=== PATIENT | female | born 1960 | race Caucasian/White ===

== ENCOUNTER → 2018-04-19 17:21 | Outpatient (CLI) | payer OTHER, SELFPAY | PROVIDERS: Visit Provider Physician Assistant | DX: N39.0 Urinary tract infection, site not specified (principal) | CPT/HCPCS: 87086 ==

== ENCOUNTER 2018-11-13 17:15 | Emergency (ER) | payer OTHER, SELFPAY ==
[2018-11-13 17:26] VITALS: BP 162/83; PULSE 68; RESP 14; TEMP 36.3; O2SAT 100; BMI 20.5
--- NOTE | 2018-11-13 17:32 | ED_ITS ---
HPI - Wound/Laceration <RONY Carney - Last Filed: 11/13/18 18:05> General Chief Complaint: Wound/Laceration Stated Complaint: CUT FINGER Time Seen by Provider: 11/13/18 17:16 Source: patient and family Mode of arrival: ambulatory Limitations: no limitations History of Present Illness HPI narrative: The patient is a 58-year-old female who presents for chief complaint a laceration to her left 5th digit. She states she was cutting a spaghetti squash and accidentally cut her finger. She states she has full range of motion of her left 5th digit. Her tetanus is within the past 5 years. She denies any numbness or tingling. She has applied pressure. She is not cleansed the wound. Related Data Allergies Allergy/AdvReac Type Severity Reaction Status Date / Time No Known Allergies Allergy Uncoded 11/13/18 17:30 Review of Systems <RONY Carney - Last Filed: 11/13/18 18:05> Review of Systems GENERAL: Denies chills, fatigue, malaise, fever, sweats. HEENT: Denies sinus pain, ear pain, sore throat, difficulty swallowing, dizziness. RESPIRATORY: Denies dyspnea, cough, wheezing, hemoptysis, sputum. CARDIOVASCULAR: Denies chest pain, palpitations, orthopnea, edema, GASTROINTESTINAL: Denies nausea, vomiting, abdominal pain, diarrhea, constipation, melena. : Denies dysuria, frequency, incontinence, hematuria, urinary retention. MUSCULOSKELETAL: See HPI SKIN: See HPI NEUROLOGIC: Denies weakness, headache, numbness, change in speech, confusion, seizures, incoordination. PSYCHIATRIC: No concerning psychosocial issues. 12 point review of systems is negative except for those stated above PFS <ORNY Carney - Last Filed: 11/13/18 18:05> Medical History (Updated 11/13/18 @ 17:57 by RONY Carney) Hypothyroid (Acute) Social History Smoking Status: Never smoker Social History Smoking Status: Never smoker Exam <RONY Carney - Last Filed: 11/13/18 18:05> Narrative Exam Narrative: GENERAL: This is a well-nourished, well-developed patient, holding finger in towel HEAD: Atraumatic. Normocephalic. No temporal or scalp tenderness. EYES: Pupils equal round and reactive. Extraocular motions intact. No scleral icterus. No injection or drainage. ENT: Nose without bleeding, purulent drainage or septal hematoma. Throat without erythema, tonsillar hypertrophy or exudate. Uvula midline. Airway patent. NECK: Trachea midline. No JVD or lymphadenopathy. Supple, nontender, no meningeal signs. CARDIOVASCULAR: Regular rate and rhythm RESPIRATORY: No cough. No increased respiratory effort. No accessory muscle use. EXTREMITIES: Full range of motion noted right 5th digit. Capillary refill less than 2 seconds. Positive radial pulse right hand. BACK: Nontender without deformity or crepitance. No flank tenderness. NEURO: AOx3. SKIN: 0.5 avulsion laceration noted medial aspect of right 5th digit. No active bleeding on initial exam. Initial Vital Signs Initial Vital Signs: Vital Signs Temperature 97.3 F L 11/13/18 17:26 Pulse Rate 68 11/13/18 17:26 Respiratory Rate 14 11/13/18 17:26 Blood Pressure 162/83 H 11/13/18 17:26 Pulse Oximetry 100 11/13/18 17:26 <Jazmin Galdamez DO - Last Filed: 11/14/18 07:25> Initial Vital Signs Initial Vital Signs: Vital Signs Temperature 97.3 F L 11/13/18 17:26 Pulse Rate 68 11/13/18 17:26 Respiratory Rate 14 11/13/18 17:26 Blood Pressure 162/83 H 11/13/18 17:26 Pulse Oximetry 100 11/13/18 17:26 Procedures <RONY Carney - Last Filed: 11/13/18 18:05> Laceration Repair Laceration 1: Site: face Side (If applicable): right Size (cm): 0.5 Description: flap Depth: simple, single layer Pre-repair: wound explored, irrigated extensively (soaked with chlorhexidine and water. Flushed with sterile saline.) and deep structures intact Skin layer closed with: steri-strips Course <RONY Carney - Last Filed: 11/13/18 18:05> Vital Signs - 8 hr 11/13/18 17:26 Temperature 97.3 F L Pulse Rate 68 Respiratory Rate 14 Blood Pressure 162/83 H Pulse Oximetry 100 <Jazmin Galdamez DO - Last Filed: 11/14/18 07:25> Vital Signs - 8 hr 11/13/18 17:26 Temperature 97.3 F L Pulse Rate 68 Respiratory Rate 14 Blood Pressure 162/83 H Pulse Oximetry 100 MDM - Wound/Laceration <MARY CarneyP-BC - Last Filed: 11/13/18 18:05> [facility] Narrative Medical decision making narrative: The patient is a 58-year-old female who presents with a chief complaint of laceration to her right 5th digit. Her tetanus is up-to-date. The wound was cleansed with water, chlorhexidine. I flushed with sterile saline. The patient declines an x-ray. She does have full range of motion. Her wound was closed as documented by Steri-Strips. Discussed at length monitoring for signs and symptoms of infection. Discussed not submerging her finger or hand to dirty water as this increases the chance of infection. Patient has no questions or concerns upon discharge. Discussed what length follow-up with PCP. Discussed come back to ER for any acute concerns. Patient and have no questions or concerns upon discharge. Discharge Plan Departure Patient Disposition: Home Clinical Impression: Laceration Discharge Date/Time: 11/13/18 18:12 Interventions: ED Discharge Assessment Last Done: 11/13/18 18:09 Instructions: DI for Laceration Repair Steri-Strips, DI for Minor Laceration Activity Restrictions/Additional Instructions: Please monitor your laceration for signs and symptoms of infection such as redness pus and swelling. Please follow up with primary care provider. Please do not submerge her hand and dirty water until it is healed as this will increase her chance of infection. Please come back to the emergency department for any acute concerns such as decreased circulation her finger tip, inability keep down fluids chest pain or shortness of breath. <Jazmin Galdamez DO - Last Filed: 11/14/18 07:25> Cosign ED Attending Cosmacielature Attestation: I was immediately available in the department for consultation. Documentation has been reviewed. I agree with assessment and plan.
== END 2018-11-13 18:12 | disposition home or self-care (01) ==
PROVIDERS: Emergency Provider Nurse Practitioner Family
DX: S61.217A Laceration without foreign body of left little finger without damage to nail, initial encounter (principal); W26.0XXA Contact with knife, initial encounter
CPT/HCPCS: 99282; 99283

== ENCOUNTER → 2020-07-14 07:20 | Outpatient (CLI) | payer OTHER, SELFPAY ==
[2020-07-14 07:58] LABS: Hematocrit 38.2 % (36-46); Mean Corpuscular Hemoglobin 30.2 PG (26-34); Mean Corpuscular Volume 88.9 fL (80-100); Platelet Count 301 X10^3/uL (150-400); Red Cell Distribution Width 13.7 % (11.6-14.8); White Blood Cell Count 4.7 X10^3/uL (4.5-11.0)
[2020-07-14 08:25] LABS: Alanine Aminotransferase 12 IU/L (<35); Albumin 4.5 g/dL (3.5-5.0); Albumin Globulin Ratio 1.7 (1.0-2.8); Alkaline Phosphatase 58 U/L (38-126); Aspartate Aminotransferase 25 IU/L (14-36); BUN Creatinine Ratio 20.7 (6-22); Bilirubin Total 0.3 mg/dL (0.2-1.3); Blood Urea Nitrogen 17 mg/dL (7-17); Calcium 9.5 mg/dL (8.4-10.2); Carbon Dioxide 32 mmol/L (22-32); Chloride 101 mmol/L (98-107); Cholesterol 250 mg/dL (140-199); Estimated Glomerular Filt Rate > 60.0 mL/min (>60); Globulin 2.7 g/dL (1.7-4.1); Glucose 105 mg/dL (80-110); HDL Cholesterol 72 mg/dL (40-60); HEMOLYSIS < 15 (0-50); LDL Cholesterol Calculated 152 mg/dL (<100); Potassium 4.1 mmol/L (3.4-5.1); Sodium 139 mmol/L (137-145); Total Protein 7.2 g/dL (6.3-8.2); Triglycerides 129 mg/dL (35-150)
== END ==
PROVIDERS: PCP Nurse Practitioner Family; Referring Provider Nurse Practitioner Family; Visit Provider Nurse Practitioner Family
DX: Z00.00 Encounter for general adult medical examination without abnormal findings (principal); Z13.6 Encounter for screening for cardiovascular disorders
CPT/HCPCS: 36415; 80053; 80061; 85027

== ENCOUNTER 2020-11-10 16:04 | Emergency (ER) | payer OTHER, SELFPAY ==
[2020-11-10 16:12] VITALS: BP 140/80; PULSE 63; RESP 16; TEMP 36.6; O2SAT 99; BMI 21.1
--- NOTE | 2020-11-10 16:17 | DI.RAD.S_ITS ---
PROCEDURE: XR CHEST 2V INDICATIONS: Fell TECHNIQUE: 2 views of the chest were acquired. COMPARISON: [facility], , XR CHEST 2 VIEWS, 03/01/2020, 16:31. FINDINGS: Surgical changes and devices: None. Lungs and pleura: Lungs are clear. No pleural effusions or pneumothorax. Mediastinum: Mediastinal contours are normal. Heart size is normal. Bones and chest wall: No suspicious bony abnormalities. Soft tissues appear unremarkable. IMPRESSION: No acute cardiopulmonary disease process. Dictated by: Sharon Murillo MD, PhD on 11/10/2020 at 16:28 Approved by: Sharon Murillo MD, PhD on 11/10/2020 at 16:29
== END 2020-11-10 19:45 | disposition left against medical advice (07) ==
PROVIDERS: Emergency Provider Emergency Medicine; PCP Nurse Practitioner Family
DX: S29.9XXA Unspecified injury of thorax, initial encounter (principal); W19.XXXA Unspecified fall, initial encounter
CPT/HCPCS: 71046; 99281

== ENCOUNTER → 2020-11-16 14:32 | Outpatient (CLI) | payer OTHER, SELFPAY ==
--- NOTE | 2020-11-16 | DI.MG.S_ITS ---
BILATERAL DIGITAL SCREENING MAMMOGRAM 3D/2D WITH CAD WITH AUGMENTATION: 11/16/2020 CLINICAL: Routine screening. Comparison is made to exams dated: 11/16/2019 mammogram, 05/15/2018 mammogram, 11/05/2017 mammogram, 10/30/2017 mammogram, and 05/23/2016 mammogram - [facility]. There are scattered fibroglandular elements in both breasts. Current study was also evaluated with a Computer Aided Detection (CAD) system. Bilateral breast implants are stable. No significant masses, calcifications, or other findings are seen in either breast. There has been no significant interval change. IMPRESSION: NEGATIVE There is no mammographic evidence of malignancy. A 1 year screening mammogram is recommended. This exam was interpreted at Station ID: [id number]. NOTE: For mammograms, a report in lay terms will be sent to the patient. Approximately 15% of breast malignancies will not be visualized mammographically. In the management of a palpable breast mass, a negative mammogram must not discourage biopsy of a clinically suspicious lesion. Electronically Signed By: Keith kiran/alva:11/16/2020 15:06:27 letter sent: Normal Exam ACR BI-RADS Category 1: Negative 3341F
== END ==
PROVIDERS: PCP Nurse Practitioner Family; Referring Provider Nurse Practitioner Family; Visit Provider Nurse Practitioner Family
DX: Z12.31 Encounter for screening mammogram for malignant neoplasm of breast (principal)
CPT/HCPCS: 77063; 77067

== ENCOUNTER → 2021-08-11 08:02 | Outpatient (CLI) | payer OTHER, SELFPAY ==
[2021-08-11 09:33] LABS: Hematocrit 36.7 % (36-46); Hemoglobin 12.4 g/dL (12.0-16.0); Mean Corpuscular HGB Conc 33.7 % (30-36); Mean Corpuscular Hemoglobin 30.1 PG (26-34); Mean Corpuscular Volume 89.2 fL (80-100); Platelet Count 286 X10^3/uL (150-400); Red Blood Cell Count 4.11 X10^6/uL (4.0-5.2); Red Cell Distribution Width 13.5 % (11.6-14.8); White Blood Cell Count 5.4 X10^3/uL (4.5-11.0)
[2021-08-11 09:52] LABS: Alanine Aminotransferase 11 IU/L (<35); Albumin 4.4 g/dL (3.5-5.0); Albumin Globulin Ratio 1.6 (1.0-2.8); Alkaline Phosphatase 43 U/L (38-126); Aspartate Aminotransferase 25 IU/L (14-36); Bilirubin Total 0.4 mg/dL (0.2-1.3); Blood Urea Nitrogen 19 mg/dL (7-17); Calcium 9.3 mg/dL (8.4-10.2); Carbon Dioxide 26 mmol/L (22-32); Chloride 105 mmol/L (98-107); Cholesterol 229 mg/dL (140-199); Estimated Glomerular Filt Rate > 60 mL/min (>60); Globulin 2.7 g/dL (1.7-4.1); Glucose 101 mg/dL (80-110); HDL Cholesterol 73 mg/dL (40-60); HEMOLYSIS 21 (0-50); LDL Cholesterol Calculated 139 mg/dL (<100); Potassium 4.8 mmol/L (3.4-5.1); Sodium 141 mmol/L (137-145); Total Protein 7.1 g/dL (6.3-8.2); Triglycerides 85 mg/dL (35-150)
== END ==
PROVIDERS: PCP Nurse Practitioner Family; Referring Provider Nurse Practitioner Family; Visit Provider Nurse Practitioner Family
DX: Z00.00 Encounter for general adult medical examination without abnormal findings (principal); Z13.6 Encounter for screening for cardiovascular disorders
CPT/HCPCS: 36415; 80053; 80061; 85027

== ENCOUNTER → 2021-10-30 11:06 | Outpatient (CLI) | payer OTHER, SELFPAY ==
[2021-10-30 12:13] LABS: COVID19 -Nasal RAPID Negative (Negative)
== END ==
PROVIDERS: PCP Nurse Practitioner; Visit Provider Surgery
DX: Z20.822 Contact with and (suspected) exposure to COVID-19 (principal); Z01.812 Encounter for preprocedural laboratory examination
CPT/HCPCS: 87635; C9803

== ENCOUNTER 2021-10-31 06:42 | Day surgery (SDC) | payer OTHER, SELFPAY ==
[2021-10-31 06:59] VITALS: BP 124/73; PULSE 56; RESP 20; TEMP 36.3; O2SAT 100
[2021-10-31] MEDS: LACTATED RINGERS 1,000 ML 150 ML IV (07:11)
--- NOTE | 2021-10-31 07:44 | PM.HP.1 ---
History of Present Illness History of Present Illness Date Patient Seen: 10/31/21 Time Patient Seen: 07:[address] [facility] Narrative: Last colonoscopy 5 years ago. This is her 3rd, polyps found on first scope, not on 2nd. No symptoms or family history Patient History Medical History Chicken pox (~1969) Chronic cough (~2019) Dyspareunia Encounter for routine gynecological examination Encounter to establish care Insomnia Measles (~1965) Mixed hyperlipidemia (06/2020) Mumps (~1965) Prinzmetal angina (2014) Rosacea (~1996) Seasonal allergies Tinnitus Surgical History Anesthesia History of cosmetic surgery (~06/2019) Family & Social History Family History Mother Accident Social History: household members spouse Tobacco & Substance use: Smoking Status Never smoker alcohol intake current alcohol intake frequency 0-2 drinks per day Substance Use Type does not use Meds Home Medications and Allergies Home Medications Medication Instructions Recorded Confirmed Type progesterone micronized 100 mg 100 mg PO QPM 90 days #90 caps 08/08/21 10/31/21 Rx capsule eszopiclone 3 mg tablet 3 mg PO BEDTIME #90 tabs 10/26/21 10/31/21 Rx Allergies Allergy/AdvReac Type Severity Reaction Status Date / Time No Known Drug Allergies Allergy Verified 10/31/21 07:06 Review of Systems Review of Systems ROS: Yes All systems reviewed with the patient and are negative except as otherwise documented Exam Vital Signs (past 8 hours): - 10/31/21 06:59 Temperature 97.3 F L Pulse Rate 56 L Respiratory Rate 20 Blood Pressure 124/73 Pulse Oximetry 100 Oxygen Delivery Method Room Air Oxygen Delivery Method Room Air Const General: cooperative, healthy appearing and comfortable [facility] Head: normal to inspection, normocephalic and atraumatic Eyes General: appearance normal, both eyes and all related structures Neck Neck: trachea midline Chest Chest: normal inspection of the chest Resp Effort & Inspection: normal respiratory effort and able to speak in complete sentences Auscultation: clear to auscultation bilaterally Cardio Rate: regular rate Rhythm: regular rhythm GI Inspection: normal to inspection Skin General: no rashes or lesions noted Hair: normal Neuro General: patient alert and patient oriented x3 Cognition: normal cognition Psych Appearance: grossly normal Judgment: judgment good Assessment & Plan Assessment & Plan narrative: Screening colonoscopy colonoscopy with moderate sedation. COVID-19 COVID-19 status: Negative Time Spent With Patient Time with patient: less than 30 minutes Critical Care time: I spent a total of [] minutes of critical care time on this patient's care today; this time is exclusive of procedural time.
[2021-10-31] MEDS: MIDAZOLAM 5 MG/5 ML VIAL IV (08:05)
[2021-10-31] MEDS: fentaNYL 250 MCG/5 ML INJ 150 MCG IV (08:05)
--- NOTE | 2021-10-31 08:15 | PM.OP.COLON ---
Operative Date/Time/Diagnoses Date of procedure: 10/31/21 Time of procedure: 08:15 Pre-op diagnosis: screening colonoscopy history of colon polyps Post-op diagnosis: same Procedure & Clinicians Study performed: Colonoscopy Same procedure as scheduled: Yes Indications: History of colon polyps Surgeon: Norma Polanco Procedure Notes SCOAP/Timeout: Done Procedure in detail: Preop diagnosis: History of colon polyps Postop diagnosis: Same Operative procedure: Colonoscopy with moderate sedation Anesthetic: Versed 5 mg, fentanyl 50 mcg Surgeon: Elizabeth Polanco MD Findings: Normal colon. No polyps, no diverticuli, melanosis coli noted. Procedure: Patient placed in a lateral position. Rectal exam performed showing normal tone no masses. Colonoscope inserted into the rectum and advanced to ileocecal valve with some difficulty and pressure out externally on the abdomen. Insufflation extraction of the scope including a retroflex in the rectum, had the above findings. Impression: Normal colonoscopy. Plan: Repeat colonoscopy 5 years due to self history of colon polyps Sedation minutes: 5 Specimen(s): none sent Complications: none Impression: No polyps, no diverticuli. Normal colon Post-procedure Recommendations: Colonoscopy in 5 years Follow up: as needed Disposition: PACU
[2021-10-31 08:18] VITALS: BP 96/75; PULSE 67; RESP 16; TEMP 36.3; O2SAT 97
[2021-10-31 08:30] VITALS: BP 108/69; PULSE 73; RESP 12; TEMP 36.8; O2SAT 98
[2021-10-31 08:37] VITALS: BP 118/72; PULSE 72; RESP 16; TEMP 36.9; O2SAT 98
== END 2021-10-31 08:53 | disposition home or self-care (01) ==
PROVIDERS: PCP Nurse Practitioner; Referring Provider Surgery; Visit Provider Surgery
PROC: 0DJD8ZZ Inspection of Lower Intestinal Tract, Via Natural or Artificial Opening Endoscopic (ICD-10-PCS; CPT 45378; principal; 2021-10-31 07:45)
DX: Z12.11 Encounter for screening for malignant neoplasm of colon (principal); Z86.010 Personal history of colon polyps
CPT/HCPCS: 45378; J2250; J3010

== ENCOUNTER → 2021-11-28 10:37 | Outpatient (CLI) | payer OTHER, SELFPAY ==
--- NOTE | 2021-11-28 | DI.MG.S_ITS ---
BILATERAL DIGITAL SCREENING MAMMOGRAM 3D/2D WITH CAD WITH AUGMENTATION: 11/28/2021 CLINICAL: Routine screening. Comparison is made to exams dated: 11/16/2020 mammogram - [facility], 11/16/2019 mammogram, and 10/30/2017 mammogram - [facility]. There are scattered fibroglandular elements in both breasts. Current study was also evaluated with a Computer Aided Detection (CAD) system. Bilateral breast implants are stable. No significant masses, calcifications, or other findings are seen in either breast. There has been no significant interval change. IMPRESSION: NEGATIVE There is no mammographic evidence of malignancy. A 1 year screening mammogram is recommended. Based on the Tyrer Cuzick model (a risk assessment model) the patient's lifetime risk is 7.5% and her 10 year risk is 3.2%. According to the ACR, ACS, and NCCN guidelines, an annual breast MRI exam along with mammogram is recommended if the patient's lifetime risk is 20% or greater. This exam was interpreted at Station ID: [id number]. NOTE: For mammograms, a report in lay terms will be sent to the patient. Approximately 15% of breast malignancies will not be visualized mammographically. In the management of a palpable breast mass, a negative mammogram must not discourage biopsy of a clinically suspicious lesion. Electronically Signed By: Sebas Soares M.D., jr/alva:11/29/2021 14:29:13 letter sent: Normal Exam ACR BI-RADS Category 1: Negative 3341F
== END ==
PROVIDERS: PCP Nurse Practitioner; Referring Provider Nurse Practitioner; Visit Provider Nurse Practitioner
DX: Z12.31 Encounter for screening mammogram for malignant neoplasm of breast (principal)
CPT/HCPCS: 77063; 77067

== ENCOUNTER → 2021-12-18 07:24 | Outpatient (CLI) | payer OTHER, SELFPAY ==
[2021-12-18 08:17] LABS: Add Manual Diff / Slide Review NO; Basophils Absolute Auto 100 /uL (0-100); Basophils Percent Auto 1.4 % (0-2); Eosinophils Absolute Auto 100 /uL (0-450); Eosinophils Percent Auto 3.3 % (2-4); Hemoglobin 11.7 g/dL (12.0-16.0); Lymphocytes Absolute Auto 1900 /uL (1100-4500); Lymphocytes Percent Auto 48.6 % (25-40); Mean Corpuscular HGB Conc 34.3 % (30-36); Mean Corpuscular Hemoglobin 30.1 PG (26-34); Mean Corpuscular Volume 87.6 fL (80-100); Monocytes Absolute Auto 300 /uL (0-900); Monocytes Percent Auto 8.3 % (3-14); Neutrophils Absolute Auto 1500 /uL (1500-7000); Neutrophils Percent Auto 38.4 % (50-75); Platelet Count 302 X10^3/uL (150-400); Red Blood Cell Count 3.88 X10^6/uL (4.0-5.2); Red Cell Distribution Width 13.6 % (11.6-14.8); White Blood Cell Count 3.9 X10^3/uL (4.5-11.0)
[2021-12-18 08:28] LABS: Alanine Aminotransferase 12 IU/L (<35); Albumin Globulin Ratio 1.4 (1.0-2.8); Alkaline Phosphatase 47 U/L (38-126); Aspartate Aminotransferase 22 IU/L (14-36); BUN Creatinine Ratio 22.7 (6-22); Bilirubin Total 0.5 mg/dL (0.2-1.3); Blood Urea Nitrogen 17 mg/dL (7-17); Calcium 8.8 mg/dL (8.4-10.2); Carbon Dioxide 30 mmol/L (22-32); Chloride 106 mmol/L (98-107); Estimated Glomerular Filt Rate > 60 mL/min (>60); Globulin 2.8 g/dL (1.7-4.1); Glucose 108 mg/dL (80-110); HEMOLYSIS < 15 (0-50); Sodium 138 mmol/L (137-145); Total Protein 6.8 g/dL (6.3-8.2)
[2021-12-18 11:10] LABS: HEMOLYSIS < 15 (0-50); Iron 111 ug/dL (37-170)
[2021-12-18 11:21] LABS: Percent Iron Saturation 39 % (15-50); Total Iron Binding Capacity 286 ug/dL (265-497); Transferrin 229 mg/dL (206-381)
[2021-12-18 11:27] LABS: Free T3, Triiodothyronine Free 2.94 pg/mL (2.77-5.27); Free T4, Direct Thyroxine 0.83 ng/dL (0.78-2.19)
[2021-12-18 11:41] LABS: Thyroid Stimulating Hormone 2.23 uIU/mL (0.47-4.68)
== END ==
PROVIDERS: PCP Nurse Practitioner; Referring Provider Nurse Practitioner; Visit Provider Nurse Practitioner
DX: Z01.812 Encounter for preprocedural laboratory examination (principal); L65.9 Nonscarring hair loss, unspecified
CPT/HCPCS: 36415; 80053; 83540; 83550; 84439; 84443; 84481; 85025

== ENCOUNTER → 2021-12-22 07:05 | Outpatient (CLI) | payer OTHER, SELFPAY ==
[2021-12-22 09:17] LABS: Add Manual Diff / Slide Review NO; Basophils Absolute Auto 100 /uL (0-100); Basophils Percent Auto 1.3 % (0-2); Eosinophils Absolute Auto 100 /uL (0-450); Eosinophils Percent Auto 3.6 % (2-4); Hematocrit 35.9 % (36-46); Lymphocytes Absolute Auto 1800 /uL (1100-4500); Mean Corpuscular HGB Conc 33.4 % (30-36); Mean Corpuscular Hemoglobin 29.6 PG (26-34); Mean Corpuscular Volume 88.5 fL (80-100); Monocytes Absolute Auto 400 /uL (0-900); Monocytes Percent Auto 9.3 % (3-14); Neutrophils Absolute Auto 1600 /uL (1500-7000); Neutrophils Percent Auto 40.8 % (50-75); Platelet Count 316 X10^3/uL (150-400); Red Blood Cell Count 4.06 X10^6/uL (4.0-5.2); Red Cell Distribution Width 13.9 % (11.6-14.8)
[2021-12-22 09:19] LABS: Hemoglobin A1C% w Est Avg Glu 5.7 % (4.0-6.0)
[2021-12-22 09:48] LABS: Alanine Aminotransferase 11 IU/L (<35); Albumin 4.3 g/dL (3.5-5.0); Albumin Globulin Ratio 1.7 (1.0-2.8); Alkaline Phosphatase 48 U/L (38-126); Aspartate Aminotransferase 21 IU/L (14-36); BUN Creatinine Ratio 21.3 (6-22); Bilirubin Total 0.3 mg/dL (0.2-1.3); Blood Urea Nitrogen 17 mg/dL (7-17); Calcium 9.3 mg/dL (8.4-10.2); Carbon Dioxide 29 mmol/L (22-32); Chloride 105 mmol/L (98-107); Estimated Glomerular Filt Rate > 60 mL/min (>60); Globulin 2.6 g/dL (1.7-4.1); Glucose 87 mg/dL (80-110); HEMOLYSIS < 15 (0-50); Potassium 4.5 mmol/L (3.4-5.1); Sodium 140 mmol/L (137-145); Total Protein 6.9 g/dL (6.3-8.2)
[2021-12-22 10:30] LABS: Vitamin B12 312 pg/mL (239-931)
== END ==
PROVIDERS: PCP Nurse Practitioner; Referring Provider Nurse Practitioner; Visit Provider Nurse Practitioner
DX: D64.9 Anemia, unspecified (principal); D72.819 Decreased white blood cell count, unspecified; R73.9 Hyperglycemia, unspecified
CPT/HCPCS: 36415; 80053; 82607; 83036; 85025

== ENCOUNTER → 2021-12-26 14:23 | Outpatient (CLI) | payer OTHER, SELFPAY ==
--- NOTE | 2021-12-26 14:25 | DI.MRI.S_ITS ---
PROCEDURE: MR BRAIN (IAC) WWO CON INDICATIONS: pain in head, loud tinnitus TECHNIQUE: Noncontrast sagittal T1 spin echo, axial FLAIR, axial gradient echo, axial diffusion and ADC through the brain. Axial thin-slice 3D CISS, coronal TruFISP, axial T1 spin echo with fat saturation through the internal auditory canals. After the administration of contrast, thin slice axial and coronal T1 spin echo with fat saturation through the internal auditory canals, and axial and coronal and sagittal T1 spin echo with fat saturation through the brain. COMPARISON: None. FINDINGS: Image quality: Excellent. The ventricular system and cortical sulci demonstrate atrophy, consistent for the patient's stated age. There are areas of increased T2/FLAIR signal intensity within the periventricular and subcortical white matter. There is no acute intra-or extra axial fluid collection. No acute hemorrhage, mass lesion or midline shift. Brainstem is unremarkable. There are no areas of restricted diffusion. Globes are symmetrical. Sinuses are aerated. Osseous structures are intact. There are no areas of mass lesion, abnormal signal or enhancement within the cerebellopontine angles or visualized cranial nerves. IMPRESSION: 1. No acute intracranial process. 2. Mild atrophy and chronic microvascular ischemic changes. 3. No abnormal signal, mass lesion or enhancement within the cerebellopontine angles or visualized cranial nerves. Dictated by: Sarah Alfaro M.D. on 12/26/2021 at 21:28 Approved by: Sarah Alfaro M.D. on 12/26/2021 at 21:29
[2021-12-26 15:04] LABS: Occult Blood 1 Negative (Negative); Occult Blood 2 Negative (Negative)
[2021-12-26 15:05] LABS: Occult Blood 3 Negative (Negative)
== END ==
PROVIDERS: PCP Nurse Practitioner; Referring Provider Nurse Practitioner; Visit Provider Nurse Practitioner
DX: H93.13 Tinnitus, bilateral (principal); R51.9 Headache, unspecified; Z80.8 Family history of malignant neoplasm of other organs or systems; D51.9 Vitamin B12 deficiency anemia, unspecified
CPT/HCPCS: 70553; 82270; A9579

== ENCOUNTER 2022-04-14 20:09 | Emergency (ER) | payer OTHER, SELFPAY ==
[2022-04-14 20:15] VITALS: BP 144/83; PULSE 86; RESP 16; TEMP 37.1; O2SAT 98; BMI 19.5
--- NOTE | 2022-04-14 21:22 | ED.WOUNDLAC ---
HPI - Wound/Laceration General Chief Complaint: Wound/Laceration Stated Complaint: cut/left hand injury Time Seen by Provider: 04/14/22 21:21 Source: patient Mode of arrival: Ambulatory History of Present Illness HPI narrative: Otherwise healthy 61-year-old right-handed woman presents with a cut to the dorsum of her left hand. She was opening a can of pineapple and the lid slipped cause laceration. The thumb extensor tendon can be visualized but is not damaged and there is complete sensation to the remainder of the thumb. Last tetanus shot was 5 years ago. The wound is otherwise quickly. Related Data Home Medications Medication Instructions Recorded Confirmed Pure Hair Nail and Skin See Rx Instructions .Route .COMPLEX 12/14/21 12/14/21 Previous Rx's Medication Instructions Recorded progesterone micronized 100 mg 100 mg PO QPM 90 days #90 caps 12/14/21 capsule eszopiclone 3 mg tablet 3 mg PO BEDTIME #90 tabs 03/27/22 cephalexin 500 mg capsule 500 mg PO TID #15 caps 04/14/22 Allergies Allergy/AdvReac Type Severity Reaction Status Date / Time No Known Drug Allergies Allergy Verified 10/31/21 08:22 Review of Systems Review of Systems Narrative: Pertinent positive and negative findings as per HPI Remainder of review of systems is otherwise unremarkable for Constitutional: Fevers, chills, weakness ENT: No sore throat, neck pain, ear pain CV: Chest pain, palpitations, Respiratory: Cough, wheeze, dyspnea GI: Nausea, vomiting, diarrhea, Patient History Medical History Chicken pox (~1969) Chronic cough (~2019) Dyspareunia Encounter for routine gynecological examination Encounter to establish care Insomnia Measles (~1965) Mixed hyperlipidemia (06/2020) Mumps (~1965) Prinzmetal angina (2014) Rosacea (~1996) Seasonal allergies Tinnitus Surgical History Anesthesia History of cosmetic surgery (~06/2019) Family History Mother Accident Social History household members: spouse Smoking Status: Never smoker second hand exposure: No alcohol intake: current substance use type: does not use Smoking Status: Never smoker alcohol intake frequency: 0-2 drinks per day Alcohol type: wine Substance Use Type: does not use Exam Initial Vital Signs Initial Vital Signs: Vital Signs Temperature 98.8 F 04/14/22 20:15 Pulse Rate 86 04/14/22 20:15 Respiratory Rate 16 04/14/22 20:15 Blood Pressure 144/83 H 04/14/22 20:15 Pulse Oximetry 98 04/14/22 20:15 Oxygen Delivery Method 04/14/22 20:15 General: Alert appropriate in no acute distress Respiratory: Able to speak in full sentences, no obvious respiratory distress Skin: No obvious rashes, warm and dry Neurologic: Grossly intact no obvious asymmetries or abnormalities Psych: appropriate insight and affect, cooperative Extremity: Left hand has a 2 cm laceration at the base of the thumb, dorsal side. Laceration extends slightly into the tendon sheath but does not involve the tendon itself. She is otherwise neurovascularly intact. Procedures Laceration Repair left thumb: Time of procedure: 21:42 Site: hand Side (If applicable): left Size (cm): 2 Description: linear Depth: simple, single layer Local Anesthetic: lidocaine 1% Amount of anesthesia used (mL): 2 Pre-repair: wound explored, irrigated extensively and deep structures intact Skin layer closed with: nylon Skin layer suture size: 4-0 Number of sutures: 2 Technique: horizontal mattress Course Vital Signs Vital signs: Vital Signs - 8 hr 04/14/22 20:15 Temperature 98.8 F Pulse Rate 86 Respiratory Rate 16 Blood Pressure 144/83 H Pulse Oximetry 98 Oxygen Delivery Method Room Air MDM - Wound/Laceration MDM Narrative Medical decision making narrative: Minor laceration dorsal surfaced base of the left thumb, sutures placed. Dressing placed, antibiotics initiated, questions answered patient is safe for home discharge Discharge Plan Departure Patient Disposition: Home Clinical Impression: Laceration Instructions: DI for Minor Laceration Activity Restrictions/Additional Instructions: Thank you for coming in today Unfortunately, the cut is deep enough that you do need a couple of stitches. These will need to come out on or about April 21. Because the cut went very close to the tendon, I am going to set just 5 days of Keflex to prevent any type of hand infection. Please keep the wound covered with a Band-Aid and some antibiotic ointment. If you notice increasing redness, pain with moving your thumb or new symptoms you do need to come back for further evaluation Prescription was electronically transmitted to [facility] and I have given you enough to last through [place] as pharmacies will not be open. I wish you the best Prescriptions: New cephalexin 500 mg capsule 500 mg PO TID Qty: 15 0RF No Action progesterone micronized 100 mg capsule 100 mg PO QPM 90 Days Qty: 90 3RF Rx Instructions: Take 1 capsule at bedtime daily, ok to increase to 200mg if 100mg ineffective eszopiclone 3 mg tablet 3 mg PO BEDTIME Qty: 90 3RF Pure Hair Nail and Skin See Rx Instructions .ROUTE .COMPLEX Rx Instructions: Take 1 daily per Derm.; Referrals: Jenelle Washington ARNP [Primary Care Provider] -
[2022-04-14] MEDS: cephALEXin 250 MG CAPSULE 500 MG PO (21:44)
[2022-04-14] MEDS: cephALEXin 250 MG PREPACK 1 BOTTLE MISC (21:44)
== END 2022-04-14 21:53 | disposition home or self-care (01) ==
PROVIDERS: Emergency Provider Emergency Medicine; PCP Nurse Practitioner
DX: S61.412A Laceration without foreign body of left hand, initial encounter (principal); W26.8XXA Contact with other sharp object(s), not elsewhere classified, initial encounter
CPT/HCPCS: 12001; 99283

== ENCOUNTER → 2022-09-03 10:45 | Outpatient (CLI) | payer OTHER, SELFPAY ==
--- NOTE | 2022-09-03 10:46 | DI.RAD.S_ITS ---
PROCEDURE: XR KUB INDICATIONS: Nephrolithiasis TECHNIQUE: One view of the abdomen acquired. COMPARISON: Outside Facility, RG, CT ABDOMEN/PELVIS WITH CONTRAST, 07/14/2022, 18:55. FINDINGS: Surgical changes and devices: None. Bowel: Bowel gas pattern is normal. Soft tissues: No suspicious abdominal calcifications. Visualized solid organ contours appear normal in size. Bones: No suspicious bony lesions. IMPRESSION: Negative examination. Nonvisualization of the previously seen distal left ureteral calculus. Dictated by: Ryan Lim M.D. on 09/03/2022 at 13:31 Transcribed by: DARY on 09/03/2022 at 14:02 Approved by: Ryan Lim M.D. on 09/03/2022 at 16:21
== END ==
PROVIDERS: PCP Nurse Practitioner; Referring Provider Urology; Visit Provider Urology
DX: N20.0 Calculus of kidney (principal)
CPT/HCPCS: 74018

== ENCOUNTER → 2022-09-20 12:49 | Outpatient (CLI) | payer OTHER, SELFPAY ==
[2022-09-20 15:22] LABS: Calcium 9.8 mg/dL (8.4-10.2); Phosphorous 3.7 mg/dL (2.8-4.1); Uric Acid 5.5 mg/dL (2.5-6.2)
[2022-09-22 07:03] LABS: Parathyroid Hormone Int 44 pg/mL (15-65)
[2022-09-25 14:22] LABS: Ca oxalate dihydrate 20 % (.); Ca oxalate monohydr 80 % (.); Size 5x4 mm (.)
== END ==
PROVIDERS: PCP Nurse Practitioner; Referring Provider Urology; Visit Provider Urology
DX: N20.0 Calculus of kidney (principal)
CPT/HCPCS: 36415; 81002; 82310; 82365; 83970; 84100; 84550

== ENCOUNTER → 2022-10-05 07:36 | Outpatient (CLI) | payer OTHER, SELFPAY ==
[2022-10-05 08:54] LABS: Hematocrit 35.5 % (36-46); Hemoglobin 12.2 g/dL (12.0-16.0); Mean Corpuscular HGB Conc 34.4 % (30-36); Mean Corpuscular Hemoglobin 30.4 PG (26-34); Mean Corpuscular Volume 88.1 fL (80-100); Platelet Count 337 X10^3/uL (150-400); Red Blood Cell Count 4.03 X10^6/uL (4.0-5.2); White Blood Cell Count 4.5 X10^3/uL (4.5-11.0)
[2022-10-05 09:36] LABS: Alanine Aminotransferase 14 IU/L (<35); Albumin 4.2 g/dL (3.5-5.0); Albumin Globulin Ratio 1.6 (1.0-2.8); Alkaline Phosphatase 46 U/L (38-126); Aspartate Aminotransferase 22 IU/L (14-36); BUN Creatinine Ratio 23.2 (6-22); Bilirubin Total 0.6 mg/dL (0.2-1.3); Blood Urea Nitrogen 19 mg/dL (7-17); Calcium 9.3 mg/dL (8.4-10.2); Carbon Dioxide 30 mmol/L (22-32); Chloride 101 mmol/L (98-107); Cholesterol 234 mg/dL (140-199); Estimated Glomerular Filt Rate > 60 mL/min (>60); Globulin 2.6 g/dL (1.7-4.1); Glucose 91 mg/dL (80-110); HDL Cholesterol 74 mg/dL (40-60); HEMOLYSIS < 15 (0-50); LDL Cholesterol Calculated 139 mg/dL (<100); Potassium 4.7 mmol/L (3.4-5.1); Sodium 136 mmol/L (137-145); Total Protein 6.8 g/dL (6.3-8.2); Triglycerides 105 mg/dL (35-150)
[2022-10-05 09:46] LABS: Microalbumin Urine Random < 0.6 mg/dL (0-1.6)
[2022-10-05 09:52] LABS: Free T3, Triiodothyronine Free 3.58 pg/mL (2.77-5.27); Free T4, Direct Thyroxine 0.86 ng/dL (0.78-2.19)
[2022-10-05 10:06] LABS: Thyroid Stimulating Hormone 2.41 uIU/mL (0.47-4.68)
[2022-10-05 10:10] LABS: HIV 1 & 2 Ab/Ag 4th Gen Combo NEGATIVE (NEGATIVE)
== END ==
PROVIDERS: PCP Nurse Practitioner; Referring Provider Nurse Practitioner; Visit Provider Nurse Practitioner
DX: Z00.00 Encounter for general adult medical examination without abnormal findings (principal); Z11.4 Encounter for screening for human immunodeficiency virus [HIV]
CPT/HCPCS: 36415; 80053; 80061; 82043; 82570; 84439; 84443; 84481; 85027; 87389

== ENCOUNTER → 2022-12-10 15:01 | Outpatient (CLI) | payer OTHER, SELFPAY ==
[2022-12-10 16:48] LABS: BUN Creatinine Ratio 24.7 (6-22); Blood Urea Nitrogen 19 mg/dL (7-17); Calcium 9.2 mg/dL (8.4-10.2); Carbon Dioxide 27 mmol/L (22-32); Chloride 102 mmol/L (98-107); Estimated Glomerular Filt Rate > 60 mL/min (>60); Glucose 146 mg/dL (80-110); HEMOLYSIS < 15 (0-50); Potassium 3.7 mmol/L (3.4-5.1); Sodium 137 mmol/L (137-145)
== END ==
PROVIDERS: PCP Nurse Practitioner; Referring Provider Internal Medicine Cardiovascular Disease; Visit Provider Internal Medicine Cardiovascular Disease
DX: I20.1 Angina pectoris with documented spasm (principal)
CPT/HCPCS: 36415; 80048

== ENCOUNTER → 2023-01-24 15:14 | Outpatient (CLI) | payer OTHER, SELFPAY ==
--- NOTE | 2023-01-24 | DI.MG.S_ITS ---
BILATERAL DIGITAL SCREENING MAMMOGRAM 3D/2D WITH CAD WITH AUGMENTATION: 01/24/2023 CLINICAL: Routine screening. Comparison is made to exams dated: 11/28/2021 mammogram, 11/16/2020 mammogram - [facility], and 11/16/2019 mammogram - [facility]. There are scattered areas of fibroglandular density in both breasts (category b / 25%-50% glandular tissue). Current study was also evaluated with a Computer Aided Detection (CAD) system. Bilateral breast implants are stable. No significant masses, calcifications, or other findings are seen in either breast. There has been no significant interval change. IMPRESSION: NEGATIVE There is no mammographic evidence of malignancy. A 1 year screening mammogram is recommended. Based on the Tyrer Cuzick model (a risk assessment model) the patient's lifetime risk is 7.4% and her 10 year risk is 3.3%. According to the ACR, ACS, and NCCN guidelines, an annual breast MRI exam along with mammogram is recommended if the patient's lifetime risk is 20% or greater. This exam was interpreted at Station ID: [id number]. NOTE: For mammograms, a report in lay terms will be sent to the patient. Approximately 15% of breast malignancies will not be visualized mammographically. In the management of a palpable breast mass, a negative mammogram must not discourage biopsy of a clinically suspicious lesion. Electronically Signed By: Johnny levine/alva:01/25/2023 18:28:17 letter sent: Normal Exam ACR BI-RADS Category 1: Negative 3341F
== END ==
PROVIDERS: PCP Nurse Practitioner; Referring Provider Nurse Practitioner; Visit Provider Nurse Practitioner
DX: Z12.31 Encounter for screening mammogram for malignant neoplasm of breast (principal)
CPT/HCPCS: 77063; 77067

== ENCOUNTER → 2023-11-04 07:04 | Outpatient (CLI) | payer OTHER, SELFPAY ==
[2023-11-04 08:35] LABS: Add Manual Diff / Slide Review NO; Basophils Absolute Auto 0 /uL (0-100); Basophils Percent Auto 0.9 % (0-2); Eosinophils Absolute Auto 100 /uL (0-450); Eosinophils Percent Auto 3.1 % (2-4); Hematocrit 36.7 % (36-46); Hemoglobin 12.4 g/dL (12.0-16.0); Lymphocytes Absolute Auto 1900 /uL (1100-4500); Lymphocytes Percent Auto 44.6 % (25-40); Mean Corpuscular HGB Conc 33.6 % (30-36); Mean Corpuscular Volume 89.3 fL (80-100); Monocytes Absolute Auto 400 /uL (0-900); Monocytes Percent Auto 8.9 % (3-14); Neutrophils Absolute Auto 1800 /uL (1500-7000); Neutrophils Percent Auto 42.5 % (50-75); Platelet Count 332 X10^3/uL (150-400); Red Blood Cell Count 4.11 X10^6/uL (4.0-5.2); Red Cell Distribution Width 14.1 % (11.6-14.8); White Blood Cell Count 4.3 X10^3/uL (4.5-11.0)
[2023-11-04 08:57] LABS: Creatinine Urine Random 103.66 mg/dL
[2023-11-04 09:01] LABS: Alanine Aminotransferase 11 IU/L (<35); Albumin 4.4 g/dL (3.5-5.0); Albumin Globulin Ratio 1.8 (1.0-2.8); Alkaline Phosphatase 50 U/L (38-126); Aspartate Aminotransferase 23 IU/L (14-36); BUN Creatinine Ratio 23.7 (6-22); Bilirubin Total 0.6 mg/dL (0.2-1.3); Blood Urea Nitrogen 18 mg/dL (7-17); Calcium 9.4 mg/dL (8.4-10.2); Carbon Dioxide 29 mmol/L (22-32); Chloride 105 mmol/L (98-107); Cholesterol 251 mg/dL (140-199); Estimated Glomerular Filt Rate > 60 mL/min (>60); Globulin 2.4 g/dL (1.7-4.1); Glucose 108 mg/dL (80-110); HDL Cholesterol 81 mg/dL (40-60); HEMOLYSIS < 15 (0-50); LDL Cholesterol Calculated 149 mg/dL (<100); Potassium 4.6 mmol/L (3.4-5.1); Sodium 138 mmol/L (137-145); Total Protein 6.8 g/dL (6.3-8.2); Triglycerides 105 mg/dL (35-150)
[2023-11-04 09:11] LABS: Free T3, Triiodothyronine Free 3.69 pg/mL (2.77-5.27); Free T4, Direct Thyroxine 0.79 ng/dL (0.78-2.19)
[2023-11-04 09:19] LABS: Microalbumin Urine Random < 0.6 mg/dL (0-1.6)
[2023-11-04 22:36] LABS: Cancer (Carbohydrate) Ag 19-9 28 U/mL (0-35)
== END ==
PROVIDERS: PCP Nurse Practitioner; Referring Provider Nurse Practitioner; Visit Provider Nurse Practitioner
DX: Z00.00 Encounter for general adult medical examination without abnormal findings (principal); Z80.0 Family history of malignant neoplasm of digestive organs
CPT/HCPCS: 36415; 80053; 80061; 82043; 82570; 84439; 84443; 84481; 85025; 86301

== ENCOUNTER → 2024-02-04 14:28 | Outpatient (CLI) | payer OTHER, SELFPAY ==
--- NOTE | 2024-02-04 14:29 | DI.MG.S_ITS ---
BILATERAL DIGITAL SCREENING MAMMOGRAM 3D/2D WITH CAD: 02/04/2024 CLINICAL: Routine screening. Comparison is made to exams dated: 01/24/2023 mammogram, 11/28/2021 mammogram, and 11/16/2020 mammogram - [facility]. There are scattered areas of fibroglandular density (category b / 25%-50% glandular tissue). Current study was also evaluated with a Computer Aided Detection (CAD) system. There is a possible irregular asymmetry in the right breast posterior depth superior region seen on the mediolateral oblique view only. No other significant masses, calcifications, or other findings are seen in either breast. IMPRESSION: INCOMPLETE: NEED ADDITIONAL IMAGING EVALUATION The possible irregular asymmetry in the right breast is indeterminate. Additional views with possible ultrasound are recommended. Based on the Tyrer Cuzick model (a risk assessment model) the patient's lifetime risk is 5.4% and her 10 year risk is 2.5%. According to the ACR, ACS, and NCCN guidelines, an annual breast MRI exam along with mammogram is recommended if the patient's lifetime risk is 20% or greater. This exam was interpreted at Station ID: [id number]. NOTE: For mammograms, a report in lay terms will be sent to the patient. Approximately 15% of breast malignancies will not be visualized mammographically. In the management of a palpable breast mass, a negative mammogram must not discourage biopsy of a clinically suspicious lesion. Electronically Signed By: George Groves M.D. slc/:02/04/2024 17:07:19 letter sent: Additional Imaging Needed ACR BI-RADS Category 0: Incomplete: Need Additional Imaging Evaluation
== END ==
LOC: MAMMO 14:29
PROVIDERS: PCP Nurse Practitioner; Referring Provider Nurse Practitioner; Visit Provider Nurse Practitioner
DX: Z12.31 Encounter for screening mammogram for malignant neoplasm of breast (principal)
CPT/HCPCS: 77063; 77067

== ENCOUNTER → 2024-02-18 09:36 | Outpatient (CLI) | payer OTHER, SELFPAY ==
--- NOTE | 2024-02-18 | DI.MG.S_ITS ---
UNILATERAL RIGHT DIGITAL DIAGNOSTIC MAMMOGRAM 3D/2D WITH ADDITIONAL VIEWS: 02/18/2024 CLINICAL: Additional evaluation requested from prior study. Comparison is made to exams dated: 02/04/2024 mammogram, 01/24/2023 mammogram, and 11/28/2021 mammogram - [facility]. There are scattered areas of fibroglandular density (category b / 25%-50% glandular tissue). There is a possible 6 mm linear, irregular, scar-like equal density asymmetry in the right breast at 11 o'clock posterior depth. This is seen in additional views. No other significant masses or calcifications are seen in the breast. IMPRESSION: INCOMPLETE: NEED ADDITIONAL IMAGING EVALUATION The possible 6 mm irregular asymmetry in the right breast is most likely a post-surgical scar given recent surgery, but remains indeterminate. An ultrasound is recommended. This was performed immediately following this exam. Based on the Tyrer Cuzick model (a risk assessment model) the patient's lifetime risk is 5.4% and her 10 year risk is 2.5%. According to the ACR, ACS, and NCCN guidelines, an annual breast MRI exam along with mammogram is recommended if the patient's lifetime risk is 20% or greater. This exam was interpreted at Station ID: [id number]. NOTE: For mammograms, a report in lay terms will be sent to the patient. Approximately 15% of breast malignancies will not be visualized mammographically. In the management of a palpable breast mass, a negative mammogram must not discourage biopsy of a clinically suspicious lesion. Electronically Signed By: Lilibeth del rosario/:02/18/2024 13:08:18 letter sent: Additional Imaging Needed ACR BI-RADS Category 0: Incomplete: Need Additional Imaging Evaluation
--- NOTE | 2024-02-18 09:38 | DI.US.S_ITS ---
LIMITED ULTRASOUND OF RIGHT BREAST AND AXILLA: 02/18/2024 CLINICAL: Patient returns today to evaluate an asymmetry in the right breast. Comparison is made to exams dated: 02/18/2024 mammogram, 02/04/2024 mammogram, 01/24/2023 mammogram, 11/28/2021 mammogram, 11/16/2020 mammogram - [facility], and 11/16/2019 mammogram - [facility]. Real-time ultrasound of the right breast 10-1 o'clock, and axilla regions was performed. Hurley scale images of the real-time examination were reviewed. No significant abnormalities were seen sonographically in the right breast. Specifically, no finding to correspond to the patient's scar-like mammographic finding. IMPRESSION: PROBABLY BENIGN No sonographic correlate to the new mammogram finding which is likely post surgical scarring. A follow-up mammogram in 6 months is recommended to demonstrate stability. Findings and recommendations were conveyed to the patient at time of exam. This exam was interpreted at Station ID: [id number]. Electronically Signed By: Lilibeth del rosario/:02/18/2024 13:10:26 letter sent: Followup Recommended ACR BI-RADS Category 3: Probably Benign
== END ==
PROVIDERS: PCP Family Medicine; Referring Provider Family Medicine; Visit Provider Family Medicine
DX: R92.8 Other abnormal and inconclusive findings on diagnostic imaging of breast (principal)
CPT/HCPCS: 76642; 77065; G0279

== ENCOUNTER → 2024-09-29 07:06 | Outpatient (CLI) | payer MEDICARE, OTHER, SELFPAY ==
[2024-09-29 07:57] LABS: Add Manual Diff / Slide Review NO; Basophils Absolute Auto 100 /uL (0-100); Basophils Percent Auto 1.3 % (0-2); Eosinophils Absolute Auto 100 /uL (0-450); Eosinophils Percent Auto 3.4 % (2-4); Hematocrit 35.2 % (36-46); Hemoglobin 12.3 g/dL (12.0-16.0); Lymphocytes Absolute Auto 1700 /uL (1100-4500); Lymphocytes Percent Auto 44.7 % (25-40); Mean Corpuscular HGB Conc 34.8 % (30-36); Mean Corpuscular Hemoglobin 31.1 PG (26-34); Mean Corpuscular Volume 89.2 fL (80-100); Monocytes Absolute Auto 400 /uL (0-900); Neutrophils Absolute Auto 1500 /uL (1500-7000); Neutrophils Percent Auto 40.6 % (50-75); Platelet Count 295 X10^3/uL (150-400); Red Blood Cell Count 3.95 X10^6/uL (4.0-5.2); Red Cell Distribution Width 13.2 % (11.6-14.8); White Blood Cell Count 3.7 X10^3/uL (4.5-11.0)
[2024-09-29 08:01] LABS: Appearance Urine UA CLEAR; Bilirubin Urine UA NEGATIVE (NEGATIVE); Color Urine UA YELLOW; Glucose Urine UA NEGATIVE (Negative); Ketones Urine UA NEGATIVE (NEGATIVE); Leukocyte Esterase Urine UA 2+ (NEGATIVE); Nitrite Urine UA NEGATIVE (Negative); Occult Blood Urine UA TRACE-INTACT (Negative); Protein Urine UA NEGATIVE (Negative); Urobilinogen Urine UA 0.2 E.U./dL (0.2)
[2024-09-29 08:12] LABS: BUN Creatinine Ratio 16.1 (6-22); Blood Urea Nitrogen 14 mg/dL (7-17); Calcium 9.2 mg/dL (8.4-10.2); Carbon Dioxide 23 mmol/L (22-32); Chloride 108 mmol/L (98-107); Cholesterol 225 mg/dL (140-199); Estimated Glomerular Filt Rate > 60 mL/min (>60); Glucose 102 mg/dL (70-99); HDL Cholesterol 55 mg/dL (40-60); HEMOLYSIS < 15 (0-50); LDL Cholesterol Calculated 143 mg/dL (<100); Potassium 4.3 mmol/L (3.4-5.1); Sodium 138 mmol/L (137-145); Triglycerides 134 mg/dL (35-150)
[2024-09-29 08:23] LABS: Bacteria Urine Few (2-10); RBC Urine 1-5/HPF (0-5/HPF); Renal Epithelial Cells Urine 1-5/HPF (0-1/HPF); Squamous Epithelial Cell Urine 5-10 /HPF (0-5/HPF); Urine Volume 10mL (spun); WBC Urine 10-30/HPF (0-5/HPF)
[2024-09-29 08:24] LABS: Culture Indicated Urine Cult Not Indicated
[2024-09-30 04:08] LABS: CRP, High Sensitivity 0.32 mg/L (0.00-3.00)
== END ==
PROVIDERS: PCP Family Medicine; Referring Provider Family Medicine; Visit Provider Family Medicine
DX: Z01.818 Encounter for other preprocedural examination (principal); E78.2 Mixed hyperlipidemia; R35.0 Frequency of micturition
CPT/HCPCS: 36415; 80048; 80061; 81001; 85025; 86140

== ENCOUNTER → 2024-12-29 13:53 | Outpatient (CLI) | payer MEDICARE, OTHER, SELFPAY ==
--- NOTE | 2024-12-29 13:54 | DI.MRI.S_ITS ---
PROCEDURE: MR CERVICAL SPINE WO CON INDICATIONS: CERVICALGIA TECHNIQUE: Noncontrast sagittal T1 spin echo and T2 fast spin echo, sagittal STIR, foraminal oblique sagittal T2 fast spin echo, and axial gradient echo or T2 fast spin echo through the cervical spine. COMPARISON: [facility], CR, XR CERVICAL SPINE 2V OR 3V, 11/26/2024, 8:07. FINDINGS: Image quality: Excellent Straightening of cervical spine. Mild anterolisthesis C2 on C3, C4 on C5. Vertebral body height of cervical spine are well maintained. Marrow signal is normal for age. Multilevel disc desiccation and disc bulge. Cervical cord: Normal in signal Right neural foraminal stenosis: Moderate at C4-5, C5-6, C6-7. Left neural foraminal stenosis: Mild at C3-4, C4-5, C5-6, severe at C6-7. Axial images: C2-3: No central canal stenosis. C3-4: Uncovertebral bilateral facet arthropathy. Posterior disc osteophyte complex. No central canal stenosis. C4-5: Posterior disc osteophyte complex. Uncovertebral and bilateral facet arthropathy. No central canal stenosis. C5-6: Uncovertebral bilateral facet arthropathy. Posterior disc osteophyte complex. No central canal stenosis. C6-7: Posterior disc osteophyte complex. Uncovertebral and bilateral facet arthropathy. Mild central canal stenosis. C7-T1: No central canal stenosis. Other soft tissue findings: Unremarkable IMPRESSION: 1. Multilevel degenerative changes, most pronounced at C6-7, where there is mild central canal stenosis and moderate right and severe left neural foraminal stenosis. Dictated by: Irlanda Bryant M.D. on 12/29/2024 at 14:57 Approved by: Irlanda Bryant M.D. on 12/29/2024 at 15:10
== END ==
PROVIDERS: Family Provider Nurse Practitioner; PCP Nurse Practitioner; Referring Provider Nurse Practitioner; Visit Provider Nurse Practitioner
DX: M47.812 Spondylosis without myelopathy or radiculopathy, cervical region (principal); M48.02 Spinal stenosis, cervical region; M54.2 Cervicalgia; R29.898 Other symptoms and signs involving the musculoskeletal system
CPT/HCPCS: 72141

== ENCOUNTER 2025-01-29 13:45 | Outpatient (RCR) | payer MEDICARE, OTHER, SELFPAY ==
--- NOTE | 2024-12-01 15:04 | PT.OPPOC ---
Addendum entered and electronically signed by Emilia Echavarria, PT 12/03/24 15:06: POC faxed Original Note: Physical, Occupational & Speech Therapy At [facility] Current Diagnoses Cervicalgia (12/01/24) Other symptoms and signs involving the musculoskeletal system (12/01/24) Visit Care Team Role Provider Type ABNER Rogers Attending Provider Non-Staff Family Provider Primary Care Provider Referring Provider Specialty: Family Practice Address: [address] [place] [address], [phone] Email: Plan Of Care PT OP: Cervical/Upper Extremity Start: 11/30/24 17:55 Freq: Status: Active Protocol: Document 12/01/24 09:11 [facility] (Rec: 12/01/24 10:42 [facility] [id number]) Out-Patient Physical Therapy Visit Information Visit Information Visit Type Initial Evaluation Visit Start Time 09:49 Visit Stop Time 10:30 Visit Number 1 Number of WATER MAIN INSPECTOR Visits 0 Progress Note Due 12/31/24 Current Condition History of Current Condition Onset Date 3 months Current Complaints neck clicking History of Current pt started having a loud click with small movements of Condition neck. no pain. This is new and only been going about 3 months. Did a lot of gymnastics as a kid so fell on her back a lot but that was a while ago. denies dizziness, lightheadedness, JANE, jaw pain, lightheadedness, numbness/tingling. 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 does a lot of stretching and does floor snow angels and some standing yoga poses. Is no longer working. Normally walks 16-20 miles a week, gardens, boats a lot and travel a lot. used of have R hip bursitis but went away after breast implants removed 2 years ago. constantly working on her scars Prior Treatments and xray: IMPRESSION: Tests No acute cervical spine fracture or dislocation. Mild- to-moderate spondylitic changes throughout cervical spine. Treatment Goals Patient/Caregiver prevent from worsening and get rid of clicking. Goals Posture Evaluation Comments Posture Comments neck SB slightly R, sheared L, R scap ant tipped, abd and elevated, slight fwd head Cervical Spine Range of Motion Cervical Spine Active Degrees Flexion 69 Extension 60 Rotation Left 60 Rotation Right 52 Lateral Flexion Left 35 Lateral Flexion 45 Right Comments thoracic rotation R: 56 L:71 Special Tests Cervical Spine Special Tests Traction Test Results relief Comments compression no change spurling Test Results some L scap pain w/L arterial screen Test Results neg positional testing, WNL auscultation heart 4 points and carotid Transverse Ligament Test Results neg tectoral membrane Test Results neg Alar Ligament Test Results neg Cervical Spine Strength Cervical Spine Manual Muscle Testing Flexion (C1-2) 4- Good- Extension 4- Good- Rotation Left 4- Good- Rotation Right 5 Normal Lateral Flexion Left 4- Good- (C3) Lateral Flexion 5 Normal Right (C3) Therapeutic Exercises Sidelying Exercises open book Side bilateral Reps/Minutes 10 Sitting Exercises isometrics Sitting Exercise 1. SB 2. rot Name Side left Reps/Minutes 5 sec x5 chin tuck Sitting Exercise 1. chin tuck 2. w/band Name Equipment Used 2. lvl 2 band Reps/Minutes 6 ea stretches Sitting Exercise 1. UT 2. LS Name Side bilateral Reps/Minutes 20 sec ea Physical Therapy Assessment Rehab Potential Rehabilitation Good Potential Evaluation Complexity Number of Personal 1-2 Factors/ Comorbidities Number of Body 3 Systems Impaired Clinical Stable Presentation at Evaluation Impairments Impairments Activity Tolerance,Functional Activities,Functional Mobility,Posture,ROM,Soft Tissue Mobility,Strength Goals ROM Short Term Goal (STG Pt will have at least 70 deg rotation B of cervical ) spine STG Duration 01/04 Skip Load Driver Goal (LTG) Pt will have at least 80 deg B thoracic rotation and at least 45 deg SB B LTG Duration 02/24 strength Short Term Goal (STG Pt will demonstrate independence w/HEP by being able to ) perform with no more than min cues. STG Duration 01/01 Skip Load Driver Goal (LTG) Pt will score at least 4+/5 on all cervical MMT to show improved strength to allow pt to dec instances of clicking LTG Duration 02/23 clicking Skip Load Driver Goal (LTG) Pt will report clicking no more than 3x/day. LTG Duration 02/22 Assessment Summary Assessment Pt presents w/ complaint of recent (past 3 months) starting clicking w/neck that bothers her. She is worried it will progress to something worse. She has dec ROM and C1 dysfunction, tightness of mm, and weakness of cervical spine along w/postural changes. She would benefit from skilled PT to address these deficits and return to typical function w/o clicking. Physical Therapy Plan Frequency and Duration Frequency of 1x/Week Treatment Duration of 12 treatment (weeks) Plan of Care Start 12/01/24 Date Plan of Care End 03/01/25 Date Therapeutic Interventions Therapeutic Home Exercise Program,Joint Mobilizations,Manual Interventions Therapy,Neuromuscular Re-education,Patient/Caregiver Education,Self-Care/Home Management,Soft Tissue Mobilization,Taping,Therapeutic Activities,Therapeutic Exercises Modalities Cold Pack/Ice Massage,Electric Stimulation,Hot Packs, Infrared Therapy,Iontophoresis,Traction- Mechanical, Ultrasound Next Visit Focus/Plan Next Note Type Treatment Note Next Visit Plan review exercises, further manual to cervical spine, train 1/2 foam roll for postural opening, pec stretch in doorway, scalene exercise Plan of Care Dates Plan of Care Start Date 12/01/24 Plan of Care End Date 03/01/25 Electronically Signed by: Emilia Echavarria, PT 12/01/24 2275 If you are in agreement with this Plan of Care, please return a signed and dated copy. I have reviewed this Plan of Care and certify that the skilled therapy services above are required to meet the patient?s needs. Physician Signature Date Printed Name and Credentials Clinical Instructor Signature Printed Name and Credentials
--- NOTE | 2024-12-08 12:31 | PT.OTN ---
Current Diagnoses Cervicalgia (12/08/24) Other symptoms and signs involving the musculoskeletal system (12/08/24) Physical Therapy Treatment Note PT OP: Cervical/Upper Extremity Start: 11/30/24 17:55 Freq: Status: Active Protocol: Document 12/08/24 11:28 [facility] (Rec: 12/08/24 12:27 [facility] [id number]) Out-Patient Physical Therapy Visit Information Visit Information Visit Type Treatment Note Visit Start Time 11:34 Visit Stop Time 12:18 Visit Number 2 Number of LINE CREWMAN Visits 1 Progress Note Due 12/31/24 OP-PT Subjective Patient Comments Patient Comments Patient reports she was fine post eval, finds the band ex ( isomet neck ex awkward).Patient rates pain 0/10 start of session, reports loud neck cracking continues to be a problem. Inc ant cervical mus activation and ribs move cranially with breathing Therapeutic Exercises Supine Exercises AROM rotation Supine Exercise Name On occipital float Side bilateral Reps/Minutes one min then 2 min Comments verbal cues to perform slowly in pain free range UT stretch Supine Exercise Name holding chair Side bilateral Reps/Minutes X60 X 2 L X 1 R sec then AROM rotation 4-6 Comments verbal cues reports of popping and audible pop with root Standing Exercises CS rotation in counter plank Standing Exercise HEP with VC to stop when crepitus starts (crackling) Name Side bilateral Reps/Minutes X 3 Comments verbal and visual cues isometric reactive cs ext Side bilateral Resistance level 2 band Reps/Minutes X 5 back to wall X 5 without wall Comments Verbal cues Manual Therapy Treatment Consent Patient gave verbal Yes consent for manual treatment Soft Tissue Mobilization UT, levator scap, scalenes at lat clavicle, int vet tissue Mobilization Type Cross-Friction,Rolling,Sustained Pressure Intensity/Depth Moderate Body Position Sitting Joint Mobilizations scapular mobilization Joint L shoulder Direction into dep and add Grade IV Body Position Sidelying Reps/Duration X 10 each AC L Direction inf Grade IV Body Position Hooklying Reps/Duration X10 X 4 Physical Therapy Assessment Goals ROM Short Term Goal (STG Pt will have at least 70 deg rotation B of cervical ) spine STG Duration 01/04 Shampoo Technician Goal (LTG) Pt will have at least 80 deg B thoracic rotation and at least 45 deg SB B LTG Duration 11/5 strength Short Term Goal (STG Pt will demonstrate independence w/HEP by being able to ) perform with no more than min cues. STG Duration 01/01 Senior Living Goal (LTG) Pt will score at least 4+/5 on all cervical MMT to show improved strength to allow pt to dec instances of clicking LTG Duration 02/23 clicking Shampoo Technician Goal (LTG) Pt will report clicking no more than 3x/day. LTG Duration 02/22 Assessment Summary Assessment Patient reports popping AC L shoulder with rotation on occ float, which was eliminated post joint mobilization to AC and scapular mobilization. Patient able to perform rotation in counter plank X 3 prior to start of crackling but not popping. Physical Therapy Plan Frequency and Duration Frequency of 1x/Week Treatment Duration of 12 treatment (weeks) Plan of Care Start 12/01/24 Date Plan of Care End 03/01/25 Date Next Visit Focus/Plan Next Note Type Treatment Note Next Visit Plan review exercises, further manual to cervical spine, train 1/2 foam roll for postural opening, pec stretch in doorway, scalene exercise
--- NOTE | 2025-01-05 11:55 | PT.OTN ---
Current Diagnoses Cervicalgia (01/05/25) Other symptoms and signs involving the musculoskeletal system (01/05/25) Physical Therapy Treatment Note PT OP: Cervical/Upper Extremity Start: 11/30/24 17:55 Freq: Status: Active Protocol: Document 01/05/25 09:06 [facility] (Rec: 01/05/25 09:50 AB [id number]) Out-Patient Physical Therapy Visit Information Visit Information Visit Type Treatment Note Visit Start Time 09:06 Visit Stop Time 09:52 Visit Number 3 Number of BOARDING HOUSE COOK Visits 1 Progress Note Due 12/31/24 OP-PT Subjective Patient Comments Patient Comments Patient reports the clicking has increased, R side behind the ear as to rub out that muscle. Patient reports she got the MRI results Wed and has bone spurs. Patient reports crackling with AROM rotation persists . Cervical Spine Range of Motion Cervical Spine Active Degrees Rotation Left 56 Rotation Right 60 Lateral Flexion Left 45 Lateral Flexion 36 Right Comments Thoracic rotation AROM seated 70% L 80% R Cervical Spine Strength Cervical Spine Manual Muscle Testing Flexion (C1-2) 4 Good Extension 5 Normal Rotation Left 4 Good Rotation Right 5 Normal Lateral Flexion Left 4 Good (C3) Lateral Flexion 5 Normal Right (C3) Therapeutic Exercises Sitting Exercises isometrics Sitting Exercise 1. SB 2. rot Name Side left Reps/Minutes 5 sec x5 Physical Therapy Assessment Goals ROM Short Term Goal (STG Pt will have at least 70 deg rotation B of cervical ) spine AROM CS rotation 56 deg L 60 deg R R side bend 36 deg R, 45 deg L STG Duration 01/04 Supervisor Cured Meats Goal (LTG) Pt will have at least 80 deg B thoracic rotation and at least 45 deg SB B 01/05/2027 AROM seated rotation 70% L 80 % LTG Duration 02/24 strength Short Term Goal (STG Pt will demonstrate independence w/HEP by being able to ) perform with no more than min cues. 01/05/2025 Requires VC and tactile cues for levat scap stretch, VC for L LE only and to hold head in good posture for isomet sidebend, VC for LE position for thoracic rotation. Good return demonstration for all other exercises, ie cues for 3/6 STG Duration 01/01 Assisted Goal (LTG) Pt will score at least 4+/5 on all cervical MMT to show improved strength to allow pt to dec instances of clicking LTG Duration 02/23 clicking Supervisor Cured Meats Goal (LTG) Pt will report clicking no more than 3x/day. 01/05/2025 Patient reports neck clicks constantly throughout the day. LTG Duration 02/22 Assessment Summary Assessment Strength is improving for CS flexion rot L and flexion, clicking persists, but is less end of session, cues required for 3/6 HEP exercises. CS rotation decreased rot L and sidebend L increased for sidebend R. This is the patient's second session post eval, does require some cues for HEP for 50% of HEP exercises, strength improving, AROM CS continues to be limited. Physical Therapy Plan Frequency and Duration Frequency of 1x/Week Treatment Duration of 12 treatment (weeks) Plan of Care Start 12/01/24 Date Plan of Care End 03/01/25 Date Next Visit Focus/Plan Next Note Type Treatment Note Next Visit Plan review exercises, further manual to cervical spine, train 1/2 foam roll for postural opening, pec stretch in doorway, scalene exercise, CS rotation in counter plank reassess zen/crepitus.
--- NOTE | 2025-01-05 18:23 | PT.OPPN ---
Current Diagnoses Cervicalgia (01/05/25) Other symptoms and signs involving the musculoskeletal system (01/05/25) Physical Therapy Progress Note PT OP: Cervical/Upper Extremity Start: 11/30/24 17:55 Freq: Status: Active Protocol: Document 01/05/25 18:21 [facility] (Rec: 01/05/25 18:22 [facility] [id number]) Out-Patient Physical Therapy Visit Information Visit Information Progress Note Due 02/04/25 Physical Therapy Assessment Goals ROM Short Term Goal (STG Pt will have at least 70 deg rotation B of cervical ) spine AROM CS rotation 56 deg L 60 deg R R side bend 36 deg R, 45 deg L STG Duration 01/04 Prison Goal (LTG) Pt will have at least 80 deg B thoracic rotation and at least 45 deg SB B 01/05/2027 AROM seated rotation 70% L 80 % LTG Duration 02/24 strength Short Term Goal (STG Pt will demonstrate independence w/HEP by being able to ) perform with no more than min cues. 01/05/2025 Requires VC and tactile cues for levat scap stretch, VC for L LE only and to hold head in good posture for isomet sidebend, VC for LE position for thoracic rotation. Good return demonstration for all other exercises, ie cues for 3/6 STG Duration 01/01 Prison Goal (LTG) Pt will score at least 4+/5 on all cervical MMT to show improved strength to allow pt to dec instances of clicking LTG Duration 02/23 clicking Production Control Coordinator Goal (LTG) Pt will report clicking no more than 3x/day. 01/05/2025 Patient reports neck clicks constantly throughout the day. LTG Duration 02/22 Assessment Summary Assessment Pt has only been seen for IE and 1 visit d/t scheduling difficulty. She has improved ROM and strength w/ exercises but did require cues still with exercises today. Cont PT for improving strength and ROM w/dec pain and clicking Physical Therapy Plan Frequency and Duration Frequency of 1x/Week Treatment Duration of 12 treatment (weeks) Plan of Care Start 12/01/24 Date Plan of Care End 03/01/25 Date Next Visit Focus/Plan Next Note Type Treatment Note Next Visit Plan review exercises, further manual to cervical spine, train 1/2 foam roll for postural opening, pec stretch in doorway, scalene exercise, CS rotation in counter plank reassess zen/crepitus.
--- NOTE | 2025-01-21 16:13 | PT.OPPN ---
Current Diagnoses Cervicalgia (01/21/25) Other symptoms and signs involving the musculoskeletal system (01/21/25) Physical Therapy Progress Note PT OP: Cervical/Upper Extremity Start: 11/30/24 17:55 Freq: Status: Active Protocol: Document 01/21/25 13:42 [facility] (Rec: 01/21/25 14:44 [facility] [id number]) Out-Patient Physical Therapy Visit Information Visit Information Visit Type Treatment Note Visit Start Time 13:50 Visit Stop Time 14:30 Visit Number 4 Number of SENIOR DESIGNER/ART DIRECTOR Visits 0 Progress Note Due 02/20/25 OP-PT Subjective Patient Comments Patient Comments pt reports got MRI and sees doctor 02/10 for follow up. She has had more clicking. R foot went to sleep when sitting 10 days ago and rolled ankle when stood up. no instances of this again. Cervical Spine Range of Motion Cervical Spine Active Degrees Flexion 68 Extension 53 Rotation Left 66 Rotation Right 72 Lateral Flexion Left 48 Lateral Flexion 34 Right Comments Thoracic rotation AROM seated 79deg L 70 deg R crackling w/ext, 1 w/R SB Cervical Spine Strength Cervical Spine Manual Muscle Testing Flexion (C1-2) 4 Good Extension 5 Normal Rotation Left 5 Normal Rotation Right 5 Normal Lateral Flexion Left 4 Good (C3) Lateral Flexion 5 Normal Right (C3) Therapeutic Exercises Sidelying Exercises open book Side bilateral Reps/Minutes 5 Comments min cues Sitting Exercises isometrics Sitting Exercise 1. SB 2. rot Name Side bilateral Reps/Minutes 5 sec x3 ea chin tuck Sitting Exercise 1. chin tuck 2. w/band against wall progressive Name isometric Equipment Used 2. lvl 2 band Reps/Minutes 6 ea Manual Therapy Treatment Consent Patient gave verbal Yes consent for manual treatment Soft Tissue Mobilization UT, levator scap, scalenes at lat clavicle, int vet tissue Body Location UT, LS, scalenes, SCM, paraspinals R>L Mobilization Type Myofascial Release,Rolling Body Position Supine Joint Mobilizations ribs Comments exernal torsion rib 6 c/r seated; general downward R w/ shrug c/r cervical Comments transverse C3, C6, C7 L c/r thoracic Comments transverse L T6 c/r Physical Therapy Assessment Goals ROM Short Term Goal (STG Pt will have at least 70 deg rotation B of cervical ) spine AROM CS rotation 56 deg L 60 deg R R side bend 36 deg R, 45 deg L 01/21 improving STG Duration 01/04 [employer] Solution Architect Goal (LTG) Pt will have at least 80 deg B thoracic rotation and at least 45 deg SB B 01/05/2027 AROM seated rotation 70% L 80 % 102-improving LTG Duration 02/24 strength Short Term Goal (STG Pt will demonstrate independence w/HEP by being able to ) perform with no more than min cues. 01/05/2025 Requires VC and tactile cues for levat scap stretch, VC for L LE only and to hold head in good posture for isomet sidebend, VC for LE position for thoracic rotation. Good return demonstration for all other exercises, ie cues for 3/6 STG Duration 01/01 [employer] Solution Architect Goal (LTG) Pt will score at least 4+/5 on all cervical MMT to show improved strength to allow pt to dec instances of clicking 102-improving LTG Duration 02/23 clicking Care Home Goal (LTG) Pt will report clicking no more than 3x/day. 01/05/2025 Patient reports neck clicks constantly throughout the day. 102-some inc clicking LTG Duration 02/22 Assessment Summary Assessment Pt had dec clicking w/ext after manual treatment. She has improved with strength and ROM overall with PT> She would benefit from cont PT to dec symptoms and improve mobility. Physical Therapy Plan Frequency and Duration Frequency of 1x/Week Treatment Duration of 12 treatment (weeks) Plan of Care Start 12/01/24 Date Plan of Care End 03/01/25 Date Next Visit Focus/Plan Next Note Type Treatment Note Next Visit Plan review exercises, further manual to cervical spine, train 1/2 foam roll for postural opening, pec stretch in doorway, scalene exercise, CS rotation in counter plank reassess zen/crepitus.
--- NOTE | 2025-01-29 16:20 | PT.OTN ---
Current Diagnoses Cervicalgia (01/29/25) Other symptoms and signs involving the musculoskeletal system (01/29/25) Physical Therapy Treatment Note PT OP: Cervical/Upper Extremity Start: 11/30/24 17:55 Freq: Status: Active Protocol: Document 01/29/25 13:45 [facility] (Rec: 01/29/25 14:35 [facility] [id number]) Out-Patient Physical Therapy Visit Information Visit Information Visit Type Treatment Note Visit Start Time 13:50 Visit Stop Time 14:32 Visit Number 5 Number of PRICK STITCHER Visits 1 Progress Note Due 02/20/25 OP-PT Subjective Patient Comments Patient Comments Patient reports she sees Feb 12 2025, Patient reports R foot often has a cramping sensation. Patient report clicking with CS rotation persists. Patient rates pain 0/10 start of session. Therapeutic Exercises Supine Exercises foam roller Supine Exercise Name 1. pec stretch HEP 2. alt UE flexion Side bilateral Reps/Minutes 1. 2 min on 1/2 and on full roll 2. X 10 Comments verbal cues, also cues to breath from diaphragm Sidelying Exercises open book Side bilateral Reps/Minutes 5 Comments min cues for LE position Standing Exercises Pec stretch on wall Side bilateral Reps/Minutes 60 sec each UE Comments verbal and visual cues CS rotation in counter plank Standing Exercise HEP with VC to stop when crepitus starts (crackling) Name Side bilateral Reps/Minutes X 10 Comments verbal and visual cues, reports no crepitus Manual Therapy Treatment Consent Patient gave verbal Yes consent for manual treatment Soft Tissue Mobilization UT, levator scap, scalenes at lat clavicle, int vet tissue Body Location UT, LS, scalenes, SCM, paraspinals R>L Mobilization Type Cross-Friction,Rolling,Sustained Pressure Intensity/Depth Moderate Body Position seated Joint Mobilizations ribs Joint 1st and second right R side Grade III Body Position Sitting Reps/Duration X 6 X 3 scapular mobilization Joint L shoulder Direction into dep and add Grade IV Body Position Sidelying Reps/Duration X 10 each AC L Direction inf Grade IV Body Position Sitting Reps/Duration X10 X2 Physical Therapy Assessment Goals ROM Short Term Goal (STG Pt will have at least 70 deg rotation B of cervical ) spine AROM CS rotation 56 deg L 60 deg R R side bend 36 deg R, 45 deg L 01/21 improving STG Duration 01/04 Data Visualization Developer Goal (LTG) Pt will have at least 80 deg B thoracic rotation and at least 45 deg SB B 01/05/2027 AROM seated rotation 70% L 80 % 102-improving LTG Duration 02/24 strength Short Term Goal (STG Pt will demonstrate independence w/HEP by being able to ) perform with no more than min cues. 01/05/2025 Requires VC and tactile cues for levat scap stretch, VC for L LE only and to hold head in good posture for isomet sidebend, VC for LE position for thoracic rotation. Good return demonstration for all other exercises, ie cues for 3/6 STG Duration 01/01 Data Visualization Developer Goal (LTG) Pt will score at least 4+/5 on all cervical MMT to show improved strength to allow pt to dec instances of clicking 01/21-improving LTG Duration 02/23 clicking Skilled Nursing Goal (LTG) Pt will report clicking no more than 3x/day. 01/05/2025 Patient reports neck clicks constantly throughout the day. 10/2-some inc clicking LTG Duration 02/22 Assessment Summary Assessment Patient reports having no crepitus during CS rotation in counter plank this session. Patient reports UE tinging with pec stretch on wall which resolved prior to end of session. Physical Therapy Plan Frequency and Duration Frequency of 1x/Week Treatment Duration of 12 treatment (weeks) Plan of Care Start 12/01/24 Date Plan of Care End 03/01/25 Date Next Visit Focus/Plan Next Note Type Treatment Note Next Visit Plan review exercises, further manual to cervical spine, continue 1/2 foam roll for postural opening, pec stretch in doorway, scalene exercise, CS rotation in counter plank reassess zen/crepitus. Possibly CS rotation in counter plank to HEP if not having crepitus
--- NOTE | 2025-04-19 08:55 | PT.OPDS ---
Current Diagnoses Cervicalgia (01/29/25) Other symptoms and signs involving the musculoskeletal system (01/29/25) Visit Care Team Role Provider Type ABNER Rogers Attending Provider Non-Staff Family Provider Primary Care Provider Referring Provider Specialty: [facility] Address: [address] [place] [address], [phone] Email: Visit Number Visit Number 5 Discharge Summary PT OP: Cervical/Upper Extremity Start: 11/30/24 17:55 Freq: Status: Active Protocol: Document 04/19/25 08:54 [facility] (Rec: 04/19/25 08:55 [facility] [id number]) Out-Patient Physical Therapy Visit Information Visit Information Visit Type Discharge Summary Physical Therapy Assessment Goals ROM Short Term Goal (STG Pt will have at least 70 deg rotation B of cervical ) spine AROM CS rotation 56 deg L 60 deg R R side bend 36 deg R, 45 deg L 01/21 improving STG Duration 01/04 Dedenter Goal (LTG) Pt will have at least 80 deg B thoracic rotation and at least 45 deg SB B 01/05/2027 AROM seated rotation 70% L 80 % 102-improving LTG Duration 02/24 strength Short Term Goal (STG Pt will demonstrate independence w/HEP by being able to ) perform with no more than min cues. 01/05/2025 Requires VC and tactile cues for levat scap stretch, VC for L LE only and to hold head in good posture for isomet sidebend, VC for LE position for thoracic rotation. Good return demonstration for all other exercises, ie cues for 3/6 STG Duration 01/01 Dedenter Goal (LTG) Pt will score at least 4+/5 on all cervical MMT to show improved strength to allow pt to dec instances of clicking 102-improving LTG Duration 02/23 clicking Senior Living Goal (LTG) Pt will report clicking no more than 3x/day. 01/05/2025 Patient reports neck clicks constantly throughout the day. 10/2-some inc clicking LTG Duration 02/22 Assessment Summary Assessment Pt was improving with ROM and strength w/PT but cont to have clicking. DC d/t no longer attending PT Physical Therapy Plan Discharge Physical Therapy Discharge Reasons No Longer Attending PT
== END 2025-04-20 09:36 | disposition home or self-care (01) ==
LOC: PHYS 13:45
PROVIDERS: Family Provider Nurse Practitioner; PCP Nurse Practitioner; Referring Provider Nurse Practitioner; Visit Provider Nurse Practitioner
DX: M54.2 Cervicalgia (principal); R29.898 Other symptoms and signs involving the musculoskeletal system
CPT/HCPCS: 97110; 97140; 97161